=== PATIENT | male | born 1980 | race Two or more races ===

== ENCOUNTER 2017-04-12 12:08 | Emergency (ER) | payer OTHER ==
[2017-04-12 12:17] VITALS: BP 136/63; PULSE 71; RESP 18; TEMP 98; O2SAT 100
[2017-04-12] MEDS ORDERED: Lidocaine 5% Patch TD STA (12:36)
--- NOTE | 2017-04-12 12:57 | ED PDOC ---
HPI: Back Time Seen by Provider: 04/12/17 12:20 Chief Complaint (Nursing): Back Pain Chief Complaint (Provider): Back Pain History Per: Patient History/Exam Limitations: no limitations Onset/Duration Of Symptoms: Hrs Current Symptoms Are (Timing): Still Present Quality Of Discomfort: "Pain" Severity: None Previous Symptoms: Back Pain Associated Symptoms: None Additional Complaint(s): 37 year old male with a past medical history of herniated disc (diagnosed 1 year ago) presents to the ED complaining of back pain. The patient states that this morning he bent over and picked up a box of gloves from the floor and immediately felt pain in the lower back. Denies trauma, incontinence, abdominal pain, nausea, vomiting, fever. PMD: FAMILY PROVIDER,NO Past Medical History Reviewed: Historical Data, Nursing Documentation, Vital Signs Vital Signs: Last Vital Signs Temp 98 F 04/12/17 12:14 Pulse 71 04/12/17 12:14 Resp 18 04/12/17 12:14 BP 136/63 04/12/17 12:14 Pulse Ox 100 04/12/17 12:14 - Medical History PMH: Back Problems (herniated dics) - Surgical History Surgical History: No Surg Hx - Family History Family History: States: No Known Family Hx - Home Medications Home Medications: Ambulatory Orders Medication Instructions Recorded Cyclobenzaprine [Cyclobenzaprine 10 mg PO Q8 PRN #14 tab 04/12/17 HCl] - Allergies Allergies/Adverse Reactions: Allergies Allergy/AdvReac Type Severity Reaction Status Date / Time No Known Allergies Allergy Verified 04/12/17 12:14 Review of Systems ROS Statement: Except As Marked, All Systems Reviewed And Found Negative Constitutional: Negative for: Fever Gastrointestinal: Negative for: Nausea, Vomiting, Abdominal Pain Genitourinary Male: Negative for: Dysuria, Incontinence Musculoskeletal: Positive for: Back Pain (lower) Physical Exam - Reviewed Nursing Documentation Reviewed: Yes Vital Signs Reviewed: Yes - Physical Exam Appears: Positive for: Non-toxic, No Acute Distress Head Exam: Positive for: NORMAL INSPECTION Skin: Positive for: Normal Color, Warm, Dry. Negative for: Rash Eye Exam: Positive for: Normal appearance, EOMI, PERRL Cardiovascular/Chest: Positive for: Regular Rate, Rhythm, Chest Non Tender. Negative for: Tachycardia Respiratory: Positive for: Normal Breath Sounds. Negative for: Wheezing, Respiratory Distress Back: Positive for: Other (left paralumbar muscle tenderness). Negative for: L CVA Tenderness, R CVA Tenderness, Vertebral Tenderness Neurologic/Psych: Positive for: Alert, Oriented - ECG O2 Sat by Pulse Oximetry: 100 (RA) Pulse Ox Interpretation: Normal Medical Decision Making Medical Decision Makin Initial Impression 37 y/o male presenting with back pain Initial Plan: * Flexeril 10g PO * Lidoderm 1 ea TD * Tylenol 975mg PO * Reevaluation Documented by Heather Vernon acting as a scribe for Min Casas PA-C. All medical record entries made by the Scribe were at my direction and personally dictated by me. I have reviewed the chart and agree that the record accurately reflects my personal performance of the history, physical exam, medical decision making, and the department course for this patient. I have also personally directed, reviewed, and agree with the discharge instructions and disposition. Disposition - Clinical Impression Clinical Impression: Chronic lower back pain - Patient ED Disposition Is Patient to be Admitted: No - Disposition Referrals: [facility] Orope[facility] [place] [Outside] [facility] [Outside] Disposition: Routine/Home Disposition Time: 12:30 Condition: STABLE Prescriptions: Cyclobenzaprine [Cyclobenzaprine HCl] 10 mg PO Q8 PRN #14 tab PRN Reason: Muscle Spasm Instructions: Chronic Back Pain (ED), Back Exercises (ED) Forms: [employer] (Bolivian), [facility] ED School/Work Excuse Print Language: CITIZEN [place]
[2017-04-12] MEDS ORDERED: Lidocaine 5% Patch TD ONE (13:04)
== END 2017-04-12 13:54 | disposition home or self-care (01) ==
LOC: H.ER 12:08
DX: G89.29 Other chronic pain (principal); M54.5 Low back pain